=== PATIENT | female | born 1945 | race Caucasian/White ===

== ENCOUNTER → 2020-07-07 | Day surgery (SDC) | payer OTHER ==
[~2020-07-07] VITALS: Ht 165.1 cm; Wt 119.3 kg
[~2020-07-07] MED LIST: CARDIZEM SR 60M60 MG PO; CARVEDILOL6.25 M1 PO; DULOXETINE HCL20 MG PO; ERTAPENEM1 GM IM; EYE ITCH RELIEF5 ML OPHTHALMIC; FLORASTOR250 MG PO; FUROSEMIDE 20 M20 M1 PO; HALLS COUGH DR1 EACH PO; LANTUS SUBQ; LORATIDINE 10 M10 M1 PO; MIRALAX119 GM PO; NORCO7.5 PO; NOVOLOG100 UNIT/1 SUBQ; NYSTATIN 100,0015 G1 TOP; ONDANSETRON HCL4 M2 PO; POTASSIUM CHLO10 MEQ PO; REFRESH TEARS15 ML OPHTHALMIC; TYLENOL325 MG PO
[2020-07-07 09:50] VITALS: BP 158/79
--- NOTE | 2020-07-11 06:20 | O ---
[facility] [place] [address] OPERATIVE REPORT Name: SHERON PULIDO Room #: REG [facility].#: [id number] Admission: 07/07/20 Attend Phys: Yuval Banuelos MD Discharge: Date of : 41 Report #: [id number] THIS REPORT FOR: cc: Sadiq Booker MD, Srinath MD White,Yuval Crum MD ~ DATE OF SERVICE: 07/07/2020 SURGEON: Yuval Banuelos MD SECURITY ANALYST: None. PREOPERATIVE DIAGNOSIS: Bilateral lower lid ectropion. POSTOPERATIVE DIAGNOSIS: Bilateral lower lid ectropion. OPERATION PERFORMED: Bilateral lower lid ectropion repair. ANESTHESIA: Local with IV sedation. COMPLICATIONS: None. INDICATIONS FOR PROCEDURE: This patient has bilateral acquired lower lid ectropion with chronic tearing, keratopathy and discharge. The current procedures are undertaken in order to improve the patient's visual function, lacrimal outflow, and level of comfort. Informed consent was obtained to include but not limit to the risk of loss of vision, bleeding, infection, scarring, failure to improve the problem and need for further surgery. DESCRIPTION OF OPERATION: The patient was taken to the operating room where 2% Xylocaine with epinephrine mixed with equal parts of 0.75% Marcaine with Wydase was administered transcutaneously and transconjunctivally to each lower lid and lateral canthal area. The patient was then prepped and draped in the usual sterile fashion. A Alannah clamp was then used to clamp the left lateral canthus following which a sharp canthotomy and cantholysis were performed. The tarsal strip was prepared laterally, removing the lash bearing portion of the redundant lid margin and the redundant tarsal plate. Hemostasis was achieved with a monopolar cautery, as it was throughout the case. The tarsal strip was then secured to the internal portion of the lateral orbital tubercle with two interrupted 5-0 Prolene sutures. The lateral canthal angle was sharply reformed as the subcutaneous structures and the skin were closed with multiple interrupted 6-0 plain gut sutures. Attention was then turned to the right side where the same procedure was performed. The wounds were cleaned and dressed with ophthalmic antibiotic [facility] [address] [place] [address] OPERATIVE REPORT Name: ASHOKSHERON Bhakta Room #: [facility].#: [id number] Admission: 07/07/20 Attend Phys: Yuval Banuelos MD Discharge: Date of : 41 Report #: [id number] ointment. The patient was then transported to the recovery area, having tolerated the procedure well with no anesthetic or operative complications being noted. <ELECTRONICALLY SIGNED> By: Yuval Banuelos MD 07/11/20 0620 1119 1130 Yuval Banuelos MD /nt
== END | disposition home or self-care (01) ==
LOC: OR 07:51
PROVIDERS: ATTEND Ophthalmology
DX: H02.105 Unspecified ectropion of left lower eyelid (principal); H02.102 Unspecified ectropion of right lower eyelid; I11.0 Hypertensive heart disease with heart failure; I50.9 Heart failure, unspecified; E11.9 Type 2 diabetes mellitus without complications; I48.91 Unspecified atrial fibrillation; I73.9 Peripheral vascular disease, unspecified; F32.9 Major depressive disorder, single episode, unspecified; J44.9 Chronic obstructive pulmonary disease, unspecified; Z98.890 Other specified postprocedural states; Z79.899 Other long term (current) drug therapy; Z79.4 Long term (current) use of insulin
CPT/HCPCS: 50010; 50101; 50386; 50398; 51636; 56527; 56531; 70005